=== PATIENT | male | born 1940 | race Caucasian/White ===

== ENCOUNTER → 2017-06-17 | Day surgery (SDC) | payer MEDICARE, OTHER ==
[~2017-06-17] MED LIST: HYDR-3583 PO; LIDOCAINE HCL 1% PF 30 ML VIAL INFIL ONE; MEPERIDINE HCL 25 MG/ML VIAL IV ONE; NEUR600T PO; PARO40TA2 PO; PRED10 PO; PROPOFOL 200 MG/20 ML AMP IV ONE; ROPI2TAB PO; SODIUM CHLORIDE 0.9% 10 ML VIAL ONE; TAMS5CAP PO; TRAM50TA PO; TRAZ1TAB45 PO; TRIAMCINOLONE ACETONIDE 40 MG/ML VIAL NERV BLOCK ONE
--- NOTE | 2017-06-19 13:01 | M6 ---
cc: RADHA HERNÁNDEZ M.D. DATE: 06/17/2017 DATE OF : 1940 PROCEDURE Fluoroscopically guided C7-T1 interlaminar epidural steroid injection. PROCEDURE NOTE History and physical was completed and signed. Consent was signed. Procedure site was marked. Medications were listed and reconciled. Pain score was recorded. Allergies were noted. Timeout was taken. Fluoroscopy time was recorded where applicable. Sedation was administered or directed by Dr. Hernández. The patient was given oxygen. The patient was monitored by a registered nurse. Total procedure time was greater than 15 minutes. An IV was started, blood pressure cuff, pulse oximeter and EKG were applied. The patient was placed in the prone position on a Edmar table, sedated with small amounts of propofol titrated to effect. Vital signs were monitored and remained stable throughout the procedure. The cervical area was prepped with alcohol and 10% Betadine solution, draped with sterile drapes. Fluoroscopy was used to visualize the C7-T1 translaminar space. The skin was infiltrated with 1% Xylocaine using a 27-gauge needle. Then a 3-1/2 inch, 18-gauge Granado needle was advanced using fluoroscopic guidance and the [id number]-[id number] technique into the epidural space at C7-T1 slightly to the right of the midline. There was negative aspiration for blood or any other type of fluid and the patient was given 6 mL of normal saline, 60 mg of Kenalog. Following this the patient was taken to the recovery room with stable vital signs, neurologically intact. W. MD CARRIE Ku/JOEY /10:19 AM /12:52 PM
== END | disposition home or self-care (01) ==
LOC: PHSDC 09:08
PROVIDERS: ATTEND Pain Medicine Interventional Pain Medicine
DX: M54.2 Cervicalgia (principal); M79.621 Pain in right upper arm
CPT/HCPCS: 62321; 99152; J2175; J3301